=== PATIENT | female | born 2000 | race Caucasian/White ===

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

== ENCOUNTER 2022-12-22 10:00 | Emergency (ER) | payer BC, MEDICAID | END 2022-12-22 11:00 | disposition left against medical advice (07) | LOC: JD.ED 10:00 | DX: Z53.21 Procedure and treatment not carried out due to patient leaving prior to being seen by health care provider (principal) ==

== ENCOUNTER 2022-12-29 12:44 | Emergency (ER) | payer BC, MEDICAID ==
[2022-12-29] MEDS ORDERED: Ibuprofen 600 MG Tab PO ONE (13:44)
== END 2022-12-29 15:49 | disposition home or self-care (01) ==
LOC: JD.ED 12:44 → EEVIPCON 12:44 → JD.ED 15:49
DX: R51.9 Headache, unspecified (principal); M54.2 Cervicalgia; M54.6 Pain in thoracic spine; Y04.0XXA Assault by unarmed brawl or fight, initial encounter; Y92.009 Unspecified place in unspecified non-institutional (private) residence as the place of occurrence of the external cause
CPT/HCPCS: 70450; 72125; 72128; 99283; A9270

== ENCOUNTER 2023-01-30 09:34 | Emergency (ER) | payer BC, MEDICAID ==
[2023-01-30] MEDS ORDERED: HYDROmorphone 0.5 MG/0.5 ML Syringe IVPUSH ONE ×2 (10:42→12:30)
[2023-01-30] MEDS ORDERED: Sodium Chloride 0.9% 10 ML Syringe FLUSH PRN ×2 (10:42→10:46)
[2023-01-30] MEDS ORDERED: Sodium Chloride 0.9% 1,000 ML IV STA (10:42)
[2023-01-30] MEDS ORDERED: Ondansetron 4 MG/2 ML SDV IVPUSH ONE (10:42)
[2023-01-30] MEDS ORDERED: Iopamidol 612 MG/ML 100 ML Bottle IVPUSH ONE (10:46)
[2023-01-30] MEDS ORDERED: Sodium Chloride 0.9% 100 ML IV SCH (11:00)
[2023-01-30] MEDS ORDERED: cefTRIAXone 2 GM in Sodium Chloride 0.9% 100 ML IV ONE (12:58)
[2023-01-30] MEDS ORDERED: Ketorolac 30 MG/ML SDV IVPUSH ONE (13:32)
[2023-01-30 13:37] LABS: CORONAVIRUS COVID-19 NAA NEGATIVE (NEGATIVE)
[2023-01-30] MEDS ORDERED: Acetaminophen/HYDROcodone 325-5 MG Tab PO ONE (13:57)
== END 2023-01-30 14:25 | disposition home or self-care (01) ==
LOC: JD.ED 09:34
DX: N83.201 Unspecified ovarian cyst, right side (principal); N10 Acute pyelonephritis; Z79.899 Other long term (current) drug therapy; Z88.8 Allergy status to other drugs, medicaments and biological substances; Z86.16 Personal history of COVID-19; Z20.822 Contact with and (suspected) exposure to COVID-19
CPT/HCPCS: 0240U; 36415; 74177; 80053; 81001; 84703; 85025; 86140; 96361; 96365; 96375; 96376; 99284; A9270; J0696; J1170; J1885; J2405; J3490; J7030; Q9967

== ENCOUNTER 2023-02-15 23:19 | Emergency (ER) | payer BC, MEDICAID | END 2023-02-16 00:25 | disposition home or self-care (01) | LOC: JD.ED 23:19 | DX: S51.011A Laceration without foreign body of right elbow, initial encounter (principal); F10.129 Alcohol abuse with intoxication, unspecified; Z88.8 Allergy status to other drugs, medicaments and biological substances; Z86.16 Personal history of COVID-19; Y04.0XXA Assault by unarmed brawl or fight, initial encounter; Y90.5 Blood alcohol level of 100-119 mg/100 ml | CPT/HCPCS: 36415; 80307; 99282; 99283 ==

== ENCOUNTER 2023-04-12 13:56 | Emergency (ER) | payer BC, MEDICAID ==
[2023-04-12] MEDS ORDERED: LORazepam 1 MG Tab PO ONE (14:25)
[2023-04-12] MEDS ORDERED: Lidocaine 1% 10 ML MDV INJECT ONE (15:01)
== END 2023-04-12 15:54 | disposition home or self-care (01) ==
LOC: JD.ED 13:56
DX: S61.411A Laceration without foreign body of right hand, initial encounter (principal); S71.111A Laceration without foreign body, right thigh, initial encounter; S71.112A Laceration without foreign body, left thigh, initial encounter; F41.9 Anxiety disorder, unspecified; J45.909 Unspecified asthma, uncomplicated; F17.210 Nicotine dependence, cigarettes, uncomplicated; Z86.16 Personal history of COVID-19; Z79.899 Other long term (current) drug therapy; Z88.8 Allergy status to other drugs, medicaments and biological substances; X78.8XXA Intentional self-harm by other sharp object, initial encounter
CPT/HCPCS: 12001; 73130; 99283; A9270; 99284

== ENCOUNTER 2025-08-09 02:58 | Emergency (ER) | payer BC, MEDICAID | END 2025-08-09 03:45 | disposition left against medical advice (07) | LOC: JD.ED 02:58 | DX: Z53.21 Procedure and treatment not carried out due to patient leaving prior to being seen by health care provider (principal) ==